=== PATIENT | female | born 1990 | race Asian ===

== ENCOUNTER → 2016-07-05 | Outpatient (CLI) | payer OTHER ==
[~2016-07-05] MED LIST: DOCU-94 PO; DOXY30TA; FIBER; MOML PO; PRENTAB26 PO; RANI150T3 PO
[2016-07-05 18:30] LABS: GTGD 50 Grams
[2016-07-07 14:17] LABS: AFP CONCENTRATION 30.5 NG/ML; AFP MULTIPLE OF MEDIAN 0.79; AFPTS GESTATIONAL AGE 16.3 WEEKS; AFPTS INSULIN DEP DIABETIC? NO; AFPTS MATERNAL WT 121 LBS; HISTORY OF NTD NO; REPEAT SAMPLE? NO
== END | disposition home or self-care (01) ==
LOC: C.LAB1850 15:45
PROVIDERS: ATTEND Obstetrics & Gynecology
DX: Z34.02 Encounter for supervision of normal first pregnancy, second trimester (principal)

== ENCOUNTER → 2016-07-15 | Outpatient (CLI) | payer OTHER | END | disposition home or self-care (01) | LOC: C.LAB 07:51 | PROVIDERS: ATTEND Obstetrics & Gynecology | DX: O28.9 Unspecified abnormal findings on antenatal screening of mother (principal); Z3A.00 Weeks of gestation of pregnancy not specified ==

== ENCOUNTER → 2016-09-27 | Outpatient (CLI) | payer OTHER ==
[2016-09-27 10:57] LABS: URINE APPEARANCE CLEAR (CLEAR); URINE BILIRUBIN NEG (NEG); URINE COLOR YELLOW; URINE NITRITE NEG (NEG); URINE PH 7.5 (4.5-7.5); URINE SPECIFIC GRAVITY 1.013 (1.000-1.030); UROBILINOGEN NEG (NEG)
[2016-09-27 11:01] LABS: MANUAL MICROSCOPIC REQUIRED? NO; REVIEW REQ? NO
[2016-09-27 11:54] LABS: HEMATOCRIT 33.6 % (37-47)
== END | disposition home or self-care (01) ==
LOC: C.LAB1850 10:06
PROVIDERS: ATTEND Obstetrics & Gynecology
DX: Z34.03 Encounter for supervision of normal first pregnancy, third trimester (principal)

== ENCOUNTER → 2016-11-22 | Outpatient (CLI) | payer OTHER | END | disposition home or self-care (01) | LOC: C.LABSPEC 10:03 | PROVIDERS: ATTEND Obstetrics & Gynecology | DX: Z34.03 Encounter for supervision of normal first pregnancy, third trimester (principal) ==

== ENCOUNTER 2016-12-19 04:33 | Inpatient (IN) | payer OTHER ==
[~2016-12-19] VITALS: Ht 152.4 cm; Wt 64.1 kg
[2016-12-19 05:22] VITALS: Ht 152.4 cm; Wt 64.1 kg
[2016-12-19] MEDS ORDERED: PRENTAB26 PO (05:25)
[2016-12-19] MEDS ORDERED: DOCU-94 PO (05:25)
[2016-12-19] MEDS ORDERED: MOML PO (05:26)
[2016-12-19] MEDS ORDERED: FIBER (05:26)
[2016-12-19] MEDS ORDERED: DOXY30TA (05:27)
[2016-12-19] MEDS ORDERED: RANI150T3 PO (05:27)
[2016-12-19] MEDS ORDERED: LACTATED RINGER'S 1000ML 1,000 ML IV PRN (08:14)
[2016-12-19 09:00] LABS: HEMATOCRIT 35.9 % (37-47); MEAN CELL VOLUME 85.5 fL (80-100); MEAN CORPUSCULAR HEMOGLOBIN 27.9 pg (25-34); MEAN CORPUSCULAR HGB CONC 32.6 g/dl (32-36); MEAN PLATELET VOLUME 11.4 fL (7.4-10.4); PLATELET COUNT 221 K/uL (130-400); WHITE BLOOD COUNT 13.87 K/uL (4.8-10.8)
[2016-12-19] MEDS ORDERED: EpHEDrine SULFATE INJ 50 MG/ML AMP ONE (11:29)
[2016-12-19] MEDS ORDERED: BUPIVACAINE 0.25% 30 ML VIAL ONE (11:29)
[2016-12-19] MEDS ORDERED: FENTANYL CITRATE INJ 50 MCG/1 ML 2 ML VIAL ONE (11:30)
[2016-12-19] MEDS ORDERED: FENTANYL 2MCG/ML ROPIV 1.25MG/ML 100ML BAG EPI ONE (11:30)
[2016-12-19] MEDS: LACTATED RINGER'S 1000ML 1,000 ML IV SCH ×3 (12:30→21:28)
[2016-12-19] MEDS ORDERED: NALOXONE HCL INJ 1 MG in SODIUM CHLORIDE 0.9% 1000ML 1,000 ML IV PRN (12:43)
[2016-12-19] MEDS ORDERED: LACTATED RINGER'S 1000ML 500 ML IV PRN ×2 (12:43→16:53)
[2016-12-19] MEDS ORDERED: DiphenhydrAMINE HCL 50 MG/ML VIAL IV PRN (12:45)
[2016-12-19] MEDS ORDERED: EpHEDrine SULFATE INJ 50 MG/ML AMP IV PRN (12:45)
[2016-12-19] MEDS ORDERED: NALOXONE HCL INJ 0.4 MG/1 ML VIAL/CARP IV PRN (12:45)
[2016-12-19] MEDS ORDERED: ONDANSETRON INJ 2 MG/ML 2 ML VIAL IV PRN (12:45)
[2016-12-19] MEDS ORDERED: NALBUPHINE HCL INJ 10 MG/ML AMP IV PRN (12:45)
[2016-12-19] MEDS ORDERED: OXYTOCIN 30 UNITS/500ML NSS IV PRN (17:00)
[2016-12-19] MEDS: FENTANYL 2MCG/ML ROPIV 1.25MG/ML 100ML BAG EPI PRN ×2 (19:12→22:49)
[2016-12-20] MEDS ORDERED: FENTANYL CITRATE INJ 50 MCG/1 ML 2 ML VIAL ONE (00:39)
[2016-12-20] MEDS ORDERED: LACTATED RINGER'S 1000ML 1,000 ML IV SCH (00:52)
[2016-12-20] MEDS ORDERED: HYDROCORTISONE ACETATE 25 MG SUPP PR PRN (01:00)
[2016-12-20] MEDS ORDERED: OXYCODONE/ACETAMINOPHEN 5-325 TAB PO PRN (01:00)
[2016-12-20] MEDS ORDERED: ACETAMINOPHEN 325 MG TAB PO PRN (01:00)
[2016-12-20] MEDS ORDERED: LANOLIN OINT EXT PRN ×2 (01:00)
[2016-12-20] MEDS ORDERED: BENZOCAINE 20% AER SPR 82.5 GM CAN EXT PRN (01:00)
[2016-12-20] MEDS ORDERED: OXYTOCIN 30 UNITS/500ML NSS IV PRN (01:00)
[2016-12-20] MEDS ORDERED: SUPERCREAM 0.870 % 15GM JAR EXT PRN (01:00)
[2016-12-20] MEDS ORDERED: DIPHTHERIA/TETANUS/PERTUSSIS 0.5 ML SYR/VIAL IM. ONE (01:00)
[2016-12-20] MEDS ORDERED: ONDANSETRON INJ 2 MG/ML 2 ML VIAL ONE (01:38)
--- NOTE | 2016-12-20 01:38 | DELIVERY SUMMARY ---
DATE OF OPERATION: 12/20/2016 PREOPERATIVE DIAGNOSES: 1. Mabry intrauterine at 40 and 2/7 weeks. 2. Onset of labor. 3. Group B streptococcus negative. POSTOPERATIVE DIAGNOSES: Same. PROCEDURE: Spontaneous vaginal delivery and repair of second degree laceration. SURGEON: Emilie Conrad MD STAFF AIR TACTICAL OFFICER: None. ESTIMATED BLOOD LOSS: 350 mL. COMPLICATIONS: None. DISPOSITION: Stable in labor and delivery. DESCRIPTION: Lissette is a 26-year-old G2, P0-0-1-0, who was admitted by my partner Dr. Goss and I assumed care of patient in the morning of 12/19/2016, at which point she was in early labor. She was managed throughout the day of 12/19/2016 with artificial rupture of membranes, augmentation with Pitocin and an epidural for pain management. She reached complete dilation just before midnight, was coached through pushing. After midnight, I was called for delivery as the head was . The patient pushed well and delivered the head of her infant in the occiput anterior position followed by both shoulders with no difficulty, and the remainder of the came easily out. There was noted to be meconium at the time of delivery. was placed on her abdomen. The cord was doubly clamped, cut by the father of the baby. Suction was provided by nursing and the rapidly began to move all 4 extremities and make respiratory efforts. The placenta delivered spontaneously after collection of cord blood for donation per patient's wishes, it was noted to be intact with a 3-vessel cord. There was a second degree perineal laceration which was repaired in the usual fashion using Vicryl suture. Due to patient's discomfort during repair, 50 mcg of fentanyl was administered IV to aid with pain management during repair with good result. The patient is currently in stable condition in the recovery room having tolerated delivery well. Her fundus is firm, lochia is minimal, and the infant is in good condition as well. I attest to the content of the Intraoperative Record and any orders documented therein. Any exception s are noted below.
[2016-12-20] MEDS ORDERED: ONDANSETRON INJ 2 MG/ML 2 ML VIAL IV PRN (01:45)
--- NOTE | 2016-12-20 02:14 | Anesthesia Procedure Note ---
Anesthesia Epidural Removal Nt Date & Time Dec 20, 2016 at 02:14 Vital Signs Pain Intensity: 0.0 Notes Mental Status: alert / awake / arousable, participated in evaluation Nausea / Vomiting: adequately controlled Pain: adequately controlled Airway Patency, RR, SpO2: stable & adequate BP & HR: stable & adequate Hydration State: stable & adequate Neuraxial Anesthesia: was administered Anesthetic Complications: no major complications apparent, pt satisfied with anesthetic care Epidural: removed without complications, with tip intact
[2016-12-20] MEDS: IBUPROFEN 600 MG TAB PO PRN ×2 (03:45→19:15)
[2016-12-20 04:00] VITALS: BP 96/61; PULSE 100; TEMP 36.8
[2016-12-20] MEDS: PRENATAL VITAMIN TAB PO SCH (08:00)
[2016-12-20] MEDS: DOCUSATE SODIUM 100 MG CAP PO SCH ×2 (08:00→19:16)
[2016-12-20 09:00] VITALS: BP 99/66; PULSE 85; TEMP 36.5
--- NOTE | 2016-12-20 10:18 | Medical Student: [facility] ---
Med Student History & Physical Date of Service Dec 20, 2016. Chief Complaint Labor Check History of Present Illness Source: patient Lissette is a 26 year old female who presents for a labor check. She was admitted to labor and delivery early this morning (12/19) at 40 weeks, 2 days gestation. Her ABBY was 12/18/2016 based on 1st trimester US and LMP. Her course was uncomplicated, and her Panorama and MSAFP tests were both WNL. Currently she is feeling contractions every 4 minutes and will have her membranes ruptures by Dr. Conrad this morning if they do not rupture spontaneously. She states that she feels movements and that her contractions are uncomfortable. She is requesting an epidural. There has been no fluid leakage or vaginal bleeding. Her blood type is A+, and she is rubella immune, GBS negative, VDRL/RPR nonreactive, and HIV counseling/testing negative. Her initial 1-hour glucose was high at 132 mg/dL, but her subsequent 2 -hr glucose test was within normal limits. At 32 weeks her Hb was 13.7 and her Hct was 39.5. Patient has mild ankle swelling but denies headache, dizziness, chest pain, and shortness of breath. OB History . Spontaneous in 2011. No further complications. 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 Past Medical History No pertinent medical or surgical history. Family History Type 2 diabetes mellitus Colon cancer Social History Smoking Status: Never Smoker Smokeless Tobacco Use: No Alcohol Use: none Drug Use: none Marital Status: Housing status: lives with significant other Occupational Status: employed Allergies Coded Allergies: No Known Allergies (Unverified , 12/19/16) Home Medications Docusate Sodium (Colace), 1 CAP PO BID Doxylamine-Pyridoxine (Diclegis) Fiber Laxative (Fiber Laxative) Magnesium Hydroxide (Milk Of Magnesia), 30 ML PO DAILY Multivit/Min/Iron/Fol Ac/Pren ( Vitamin), 1 TAB PO DAILY Ranitidine Hcl (Zantac), 150 MG PO DAILY Review of Systems Constitutional: No fever, No chills, No sweats, No weight loss, No weakness, No fatigue, No problem reported Eyes: No worsening of vision, No eye pain, No redness, No discharge, No diplopia, No problem reported ENT: No hearing loss, No unusual epistaxis, No nasal symptoms, No sore throat, No tinnitus, No dental problems, No trouble swallowing, No problem reported Respiratory: No cough, No sputum, No wheezing, No shortness of breath, No dyspnea on exertion, No dyspnea at rest, No hemoptysis, No problem reported Cardiovascular: No chest pain, No orthopnea, No PND, No edema, No claudication , No palpitations, No problem reported Abdomen: + pain (Contractions every 4 minutes) Musculoskeletal: No joint pain, No muscle pain, No swelling, No calf pain, No problem reported Genitourinary - Female: + Neurologic: No memory loss, No paralysis, No weakness, No numbness/tingling, No vertigo, No balance problems, No problem reported Psychiatric: No depression symptoms, No anhedonism, No anxiety, No insomnia, No substance abuse, No problem reported Endocrine: No fatigue, No excessive thirst, No excessive urination, No problem reported Hematologic / Lymphatic: No abnormal bleeding/bruising, No clotting problems, No swollen lymph nodes, No night sweats, No problem reported Integumentary: No rash, No itch, No new/changing skin lesions, No color change , No bleeding, No problem reported Physical Exam Vital Signs: Vital Signs Past 12 Hours Date Time Temp Pulse Resp B/P (MAP) Pulse Ox O2 Delivery O2 Flow Rate FiO2 12/19/16 0700 36.8C 88 18 119/72 General Appearance: WD/WN Head: normocephalic, atraumatic Eyes: normal inspection Respiratory/Chest: chest non-tender, lungs clear, normal breath sounds Cardiovascular: regular rate, rhythm, no murmur Abdomen / GI: non tender, soft, + pertinent finding (Gravid uterus) Genitourinary - Female: + pertinent finding (Dilation: 4 cm Effacement: 90% Station: -1 (examined by Dr. Goss)) Extremities: normal inspection, + swelling (Mild swelling in ankles bilaterally ) Monitoring External Monitor: Moderate variability; +accels: no decels; category 1 Baseline HR 130 Tocodynamometer: Ctx every 4 minutes Assessment and Plan Assessment: This is a 26-year-old female who presents today for a labor check at 40 weeks, two days gestation. There have been no complications. tracing is category 1. Plan: Admit to labor and delivery. Monitor mother and fetus with toco and EFM NPO except ice chips and water Expectant management for now. Will artificially rupture membranes and have epidural placed within the next two hours. Expect normal spontaneous vaginal delivery.
[2016-12-20 15:30] VITALS: BP 110/69; PULSE 103; TEMP 36.9
[2016-12-20 19:00] VITALS: BP 97/42; PULSE 92; TEMP 36.7
[2016-12-20 23:30] VITALS: BP 103/70; PULSE 79; TEMP 36.6
[2016-12-21] MEDS: IBUPROFEN 600 MG TAB PO PRN ×2 (01:52→22:48)
--- NOTE | 2016-12-21 06:25 | OB/GYN Progress Note ---
YARD ASSOCIATE Progress Note Date of Service Dec 21, 2016. Subjective conversation w/ patient, physical exam, chart review, lab review Ambulation: ambulating normally Voiding: no voiding problems Diet Tolerance: Regular Diet Lochia: Moderate Feeding Type: Breast Feeding Pain: 3-4/10 pain Review of Systems Constitutional: No fever Respiratory: No shortness of breath Cardiac: No chest pain Abdomen: No nausea, No vomiting Female : No dysuria Objective Vital Signs Date Time Temp Pulse Resp B/P (MAP) Pulse Ox O2 Delivery O2 Flow Rate FiO2 12/20/16 23:30 36.6 79 18 103/70 (81) Room Air 12/20/16 23:30 Room Air 12/20/16 19:00 36.7 92 20 97/42 (60) Room Air 12/20/16 15:30 Room Air 12/20/16 15:30 36.9 103 20 110/69 (83) Room Air 12/20/16 09:00 36.5 85 18 99/66 (77) Physical Exam General Appearance: WELL-APPEARING Respiratory/Chest: lungs clear, normal breath sounds, no respiratory distress Cardiovascular: regular rate, rhythm Abdomen: normal bowel sounds, non tender, soft Fundus: Firm, Relation to Umbilicus (3 FB below) Extremities: non-tender, no pedal edema Laboratory Results Last 24 Hours Test 12/21/16 04:44 Medications Current Inpatient Medications Medications (Trade) Dose Ordered Sig/Mil Route Start Time Stop Time Status Last Admin Dose Admin Lactated Ringer's 1,000 ml @ 125 mls/hr Q8H IV 12/20/16 00:52 01/19/17 00:51 Oxytocin (Pitocin IV) 30 units UD PRN IV 12/20/16 01:00 01/19/17 00:59 Benzocaine (Dermoplast Aero Spr) 1 appln PRN PRN EXT 12/20/16 01:00 01/19/17 00:59 12/20/16 03:45 1 APPLN Cocaine HCl (Supercream 0.870% Cr) BID PRN EXT 12/20/16 01:00 01/03/17 00:59 12/20/16 03:46 15 GM Hydrocortisone Acetate (Anusol Hc Supp) 25 mg BID PRN CA 12/20/16 01:00 01/19/17 00:59 Lanolin (Lanolin Oint) PRN PRN EXT 12/20/16 01:00 01/19/17 00:59 Prenat Multivit/ [place]/Iron/Folic Ac ( Vitamin Tab) 1 tab DAILY PO 12/20/16 08:00 01/19/17 07:59 Ibuprofen (Motrin Tab) 600 mg Q4H PRN PO 12/20/16 01:00 01/19/17 00:59 12/21/16 01:52 600 MG Acetaminophen (Tylenol Tab) 650 mg Q6H PRN PO 12/20/16 01:00 01/19/17 00:59 Oxycodone/ Acetaminophen (Percocet 5-325mg Tab) 1 tab Q4H PRN PO 12/20/16 01:00 01/03/17 00:59 Docusate Sodium (coLACE CAP) 100 mg BID PO 12/20/16 08:00 01/19/17 07:59 12/20/16 19:16 100 MG Ondansetron HCl (Zofran Inj) 4 mg Q6H PRN IV 12/20/16 01:45 01/19/17 01:44 Assessment and Plan Post- Day Number: 1 Continue Routine Care: A/P: This is a 26 y/o female, , s/p normal vaginal delivery. She is ambulating and clinically stable. Plan: - Vitals signs are reviewed and WNL (Tmax 36.9 ) - Last Hgb is 11.7 (12/19). This AM pending - Blood type A+, GBS neg, Rubella Immune - Routine care - Encourage ambulation, monitor and control pain with medication as needed, continue with regular diet as tolerated and monitor lochia - Stool softeners and sitz bath recommended - Encourage breast feeding and educate about breast feeding Resident Physician Supervision Note: I was present with Dr. Berry during the history and exam. I discussed the case with the resident and agree with the findings and plan as documented in the note. Any exceptions or clarifications are listed here: PPD#1 doing well. Continue routine care. Documented By: Bhavani Live Resident Involvement: Resident Care Provided Care Provided: OB Delivery
--- NOTE | 2016-12-21 06:44 | Medical Student: [facility] ---
Med Student INFORMATION OPERATOR Progress Nt Date of Service Dec 21, 2016. Subjective conversation w/ patient Ambulation: ambulating normally Voiding: no voiding problems Passing Gas: Yes Diet Tolerance: Regular Diet Lochia: Moderate Feeding Type: Breast Feeding Notes: Lissette is a 26-year-old, female who is post- day 2 following a normal spontaneous vaginal delivery. There were no complications during the labor process. Her blood type is A+, she is rubella immune, and GBS negative. She is ambulating well and has minimal pain with voiding. She states that she is passing gas but that she has not had a bowel movement within the last 24 hours. She has some moderate vaginal bleeding, and her pain today is 3-4/10. She is eating well with no nausea or vomiting and is breast-feeding with good latch. She denies headache, dizziness, shortness of breath, and chest pain. Review of Systems Constitutional: No fever, No chills, No sweats, No weight loss, No weakness, No fatigue, No problem reported Respiratory: No cough, No sputum, No wheezing, No shortness of breath, No dyspnea on exertion, No dyspnea at rest, No hemoptysis, No problem reported Cardiac: No chest pain, No orthopnea, No PND, No edema, No claudication, No palpitations, No problem reported Breast: No see HPI, No breast lump, No change in shape, No nipple discharge, No breast pain, No problem reported Abdomen: No pain, No nausea, No vomiting, No diarrhea, No constipation, No GI bleeding, No problem reported Female : + see HPI Objective Vital Signs Date Time Temp Pulse Resp B/P (MAP) Pulse Ox O2 Delivery O2 Flow Rate FiO2 12/20/16 23:30 36.6 79 18 103/70 (81) Room Air 12/20/16 23:30 Room Air 12/20/16 19:00 36.7 92 20 97/42 (60) Room Air 12/20/16 15:30 Room Air 12/20/16 15:30 36.9 103 20 110/69 (83) Room Air 12/20/16 09:00 36.5 85 18 99/66 (77) Physical Exam General Appearance: WELL-APPEARING, WD/WN, NO APPARENT DISTRESS Respiratory/Chest: chest non-tender, lungs clear, normal breath sounds Cardiovascular: regular rate, rhythm, no edema, no gallop, no murmur Abdomen: normal bowel sounds, non tender, soft Fundus: Firm, Relation to Umbilicus (3 cm) Extremities: normal range of motion, non-tender, normal inspection, no pedal edema Laboratory Results Last 24 Hours Test 12/21/16 04:44 Assessment and Plan Post- Day Number: 2 Continue Routine Care: Assessment: Lissette is a 26-year-old post- day 2 after a normal spontaneous vaginal delivery. Her vitals are reviewed and stable. Plan: Provide routine post-vaginal delivery care. Pre-delivery Hb of 11.7, post-delivery Hb pending. Continue to monitor for bleeding. Control pain with Motrin. Encourage ambulation and breast feeding.
--- NOTE | 2016-12-21 07:05 | Discharge Instructions ---
Discharge Instructions Date of Service Dec 21, 2016. Admission Reason for Admission: Labor Check Discharge Discharge Diagnosis / Problem: after delivery Discharge Goals Goal(s): Routine recovery after delivery Medications Continue Dispensed Medications: supercream, dermaplast, tucks, lansinoh Activity Recommendations Activity Limitations: per Instructions/Follow-up section . Instructions / Follow-Up Instructions / Follow-Up ACTIVITY RECOMMENDATIONS: * Gradual return to full activity over the next 2-3 weeks. * No lifting - nothing heavier than baby over the next 2-3 weeks. * Do not engage in vigorous exercise, sexual activity or sports until cleared by your physician. * Do not drive or operate any motorized equipment until cleared by your physician. * You may shower/bathe daily. MEDICATIONS: For discomfort or pain, you may use Acetaminophen (Tylenol), Ibuprofen (Advil), or Naproxen (Aleve) following the package directions. For constipation you may use Colace following the package directions. BREAST CARE: If you are not breast feeding: * Wear a supportive bra 24 hours a day for one to two weeks. * Avoid stimulating your breasts and nipples as much as possible during the first few weeks after delivery. * When taking a shower, have the warm water hit your back, not breasts. * When your breasts feel full, apply ice packs. Usually three to four times a day helps ease the discomfort. * Take a mild pain medication (Tylenol / Motrin) when you are uncomfortable. If breast feeding: * Use breast milk to lubricate nipples. Lansinoh cream may be used for sore nipples. You do not need to remove cream prior to breast feeding. If using a different brand of cream, check the label for directions regarding removal of cream prior to nursing. * Wear a supportive bra. * If having problems with breasts or breast feeding, call a independent marketing consultant or your health care provider. EPISIOTOMY CARE: After delivery, if you have an episiotomy (stitches), the following steps will ease discomfort and aid healing. * For the first 24 hours after delivery, place ice packs next to your episiotomy to help reduce swelling. * After the first 24 hour-period, sitz baths, either portable or in the tub, are suggested. A shower with a shower arm sprayed over the episiotomy may be comforting. * Thuy care should be done after each voiding and bowel movement. Squirt warm water from a plastic bottle over the perineum (region of the body between the anus and urinary opening) and pat dry. * Use Dermoplast to ease discomfort. Shake container. [place] directly over the episiotomy. Place a Tucks on a clean sanitary pad next to your episiotomy. SPECIAL CARE INSTRUCTIONS: When you are discharged from the hospital, it is important for you to follow the instructions listed below: * During the first week at home, you should be able to care for yourself and your baby. In addition, the usual light household activities are encouraged. * Limit your activities to the way you feel. Do not try to clean the house or move furniture. Be sensible. * If you actively engage in sports and have done so up until the time of your delivery, you may resume these activities as soon as you feel able. This may take up to one month or even longer. Use good judgment. * Continue to take your vitamins for at least six weeks after the of your baby. * Your diet need not be limited unless you were on a special diet before your delivery. Breast-feeding mothers need around 2500 calories per day and at least 64-80 ounces of fluid per day (8 to 10 glasses). * You should eat foods from the four major food groups. Crash diets or fad diets are to be avoided. Eating lean meats, fresh fruits and vegetables, low-fat dairy products, high fiber foods and a regular exercise program, will help you get back to your pre- weight without putting your health at risk. * Constipation is sometimes a problem after delivery. Take a mild laxative as needed. If breast feeding, Milk of Magnesia is acceptable to use. You may use a suppository or Fleets enema if no episiotomy. * A daily shower or tub bath is suggested. Be sure to thoroughly and gently dry the perineum. * A bloody vaginal discharge will usually continue until around four weeks post . A small amount of bleeding may continue for as long as six weeks. Vaginal discharge changes from the bright red bleeding after delivery to pink then brownish and finally yellowish-pink before becoming white and disappearing. * Bleeding may increase with activity. Your first period may come in 4-8 weeks. If you are breast feeding, your period may be delayed even longer. * Prien (sex) can begin whenever both you and your partner feel comfortable and do not have any form of genital infection. It is recommended that you wait at least six weeks for internal and external healing to occur. If you have questions, please talk to your health care practitioner. A condom should be used to prevent infection and . * Foreplay, gentle intercourse and lubrication is very important the first several times to prevent pain. A water-based lubricant such as K-Y jelly or Astroglide may be used. * If you have RH negative blood and your baby is RH positive, you will receive RHOGAM by injection prior to discharge. The nurse will give you a card to keep with you that has the date and place that you received RHOGAM after delivery. * During your care, you had a Rubella screen done to check for the presence of rubella antibodies in your blood. If your test was negative, you will receive a Rubella vaccine prior to discharge. This vaccine may cause a fever, soreness at the injection site and flu-like symptoms. If these symptoms persist, notify your health care practitioner. is not advised for one month after a Rubella vaccine. * Verbalizes understanding of car seat law as reviewed with patient nursing. * Car Seat hand-out given and reviewed with patient by nursing. * Shaken baby information reviewed with patient by nursing. Call you doctor if: * Heavy bleeding (saturating several pads an hour) or passing clots the size of your fist. * A fever >101 degrees F (38.3 degrees C) on two occasions four hours apart and /or chills. * Unusual pain in the pelvic or vaginal areas. * "Baby Blues" lasting longer than two weeks. If you have any questions or concerns, call your health care practitioner at . FOLLOW UP VISIT: * Please call the office at to schedule a 6 week examination. It is important you keep this appointment. It is important for you to make arrangements for either yearly or twice yearly check-ups thereafter. Current Hospital Diet Patient's current hospital diet: Regular OB Diet, Vegetarian Diet Discharge Diet Recommended Diet: Regular Diet Pending Studies Studies pending at discharge: no Medical Emergencies . Who to Call and When: Medical Emergencies: If at any time you feel your situation is an emergency, please call 911 immediately. . Non-Emergent Contact Non-Emergency issues call your: Hand Clipper . . "Provider Documentation" section prepared by Juan Berry. . VTE Core Measure Inpt VTE Proph given/why not?: Treatment not indicated
[2016-12-21 07:27] LABS: HEMATOCRIT 27.7 % (37-47)
[2016-12-21 08:06] VITALS: BP 107/74; PULSE 76; TEMP 36.5; O2SAT 100
[2016-12-21] MEDS: DOCUSATE SODIUM 100 MG CAP PO SCH ×2 (08:54→19:59)
[2016-12-21] MEDS: PRENATAL VITAMIN TAB PO SCH (08:54)
[2016-12-21 16:15] VITALS: BP 103/69; PULSE 85; TEMP 37
[2016-12-21] MEDS ORDERED: MAGNESIUM HYDROXIDE SUSP 30 ML UDC PO PRN (16:45)
[2016-12-21 22:55] VITALS: BP 109/74; PULSE 80; TEMP 36.6
--- NOTE | 2016-12-22 06:12 | OB/GYN Progress Note ---
[facility] Progress Note Date of Service Dec 22, 2016. Subjective conversation w/ patient, physical exam, chart review, lab review Ambulation: ambulating normally Voiding: no voiding problems Diet Tolerance: Regular Diet Lochia: Small Feeding Type: Breast Feeding Pain: 3-4/10 Review of Systems Constitutional: No fever Respiratory: No shortness of breath Cardiac: No chest pain Abdomen: No nausea, No vomiting Female : No dysuria Objective Vital Signs Date Time Temp Pulse Resp B/P (MAP) Pulse Ox O2 Delivery O2 Flow Rate FiO2 12/21/16 22:55 Room Air 12/21/16 22:55 36.6 80 16 109/74 (86) Room Air 12/21/16 16:15 37.0 85 16 103/69 (80) Room Air 12/21/16 16:15 Room Air 12/21/16 08:30 Room Air 12/21/16 08:06 36.5 76 16 107/74 (85) 100 Room Air Physical Exam General Appearance: WELL-APPEARING Respiratory/Chest: lungs clear, normal breath sounds, no respiratory distress Cardiovascular: regular rate, rhythm Abdomen: normal bowel sounds, non tender, soft Fundus: Firm, Relation to Umbilicus (4 FB below) Extremities: non-tender, no pedal edema Laboratory Results Last 24 Hours Test 12/21/16 06:52 Hemoglobin 9.1 g/dL Hematocrit 27.7 % Medications Current Inpatient Medications Medications (Trade) Dose Ordered Sig/Mil Route Start Time Stop Time Status Last Admin Dose Admin Lactated Ringer's 1,000 ml @ 125 mls/hr Q8H IV 12/20/16 00:52 01/19/17 00:51 Oxytocin (Pitocin IV) 30 units UD PRN IV 12/20/16 01:00 01/19/17 00:59 Benzocaine (Dermoplast Aero Spr) 1 appln PRN PRN EXT 12/20/16 01:00 01/19/17 00:59 12/20/16 03:45 1 APPLN Cocaine HCl (Supercream 0.870% Cr) BID PRN EXT 12/20/16 01:00 01/03/17 00:59 12/20/16 03:46 15 GM Hydrocortisone Acetate (Anusol Hc Supp) 25 mg BID PRN SD 12/20/16 01:00 01/19/17 00:59 Lanolin (Lanolin Oint) PRN PRN EXT 12/20/16 01:00 01/19/17 00:59 Prenat Multivit/ Field Captain/Iron/Folic Ac ( Vitamin Tab) 1 tab DAILY PO 12/20/16 08:00 01/19/17 07:59 12/21/16 08:54 1 TAB Ibuprofen (Motrin Tab) 600 mg Q4H PRN PO 12/20/16 01:00 01/19/17 00:59 12/21/16 22:48 600 MG Acetaminophen (Tylenol Tab) 650 mg Q6H PRN PO 12/20/16 01:00 01/19/17 00:59 Oxycodone/ Acetaminophen (Percocet 5-325mg Tab) 1 tab Q4H PRN PO 12/20/16 01:00 01/03/17 00:59 Docusate Sodium (coLACE CAP) 100 mg BID PO 12/20/16 08:00 01/19/17 07:59 12/21/16 19:59 100 MG Ondansetron HCl (Zofran Inj) 4 mg Q6H PRN IV 12/20/16 01:45 01/19/17 01:44 Magnesium Hydroxide (Milk Of Magnesia Susp) 30 ml Q6H PRN PO 12/21/16 16:45 01/20/17 16:44 12/21/16 17:20 30 ML Assessment and Plan Post- Day Number: 2 Continue Routine Care: A/P: This is a 26 y/o female, , PPD#2 s/p normal vaginal delivery. She is ambulating and clinically stable. Plan: - Vitals signs are reviewed and WNL (Tmax 36.9 ) - Last Hgb is 11.7 (12/19). This AM pending - Blood type A+, GBS neg, Rubella Immune - No signs of depression. - Routine care - Discussed resting, feeding, pain control, mastitis, control, follow up in 6 weeks and reasons to call sooner, if necessary. - Continue with pain medication as needed, and continue vitamins. - Encourage breast feeding and educate about breast feeding - Patient understands and keen for home. - Plan to discharge home Resident Physician Supervision Note: I interviewed and examined the patient. Discussed with Dr. Berry and agree with findings and plan as documented in the note. Any exceptions or clarifications are listed here: [None] Documented By: Param Rice Resident Involvement: Resident Care Provided Care Provided: OB Delivery
[2016-12-22 08:20] VITALS: BP 116/82; PULSE 96; TEMP 36.8; O2SAT 98
[2016-12-22] MEDS: DOCUSATE SODIUM 100 MG CAP PO SCH (09:36)
[2016-12-22] MEDS: PRENATAL VITAMIN TAB PO SCH (09:36)
[2016-12-22] MEDS: IBUPROFEN 600 MG TAB PO PRN ×2 (11:55→20:11)
[2016-12-22 16:40] VITALS: BP 124/84; PULSE 83; TEMP 36.7; O2SAT 98
[2016-12-22 20:15] VITALS: BP_DIAS 84; PULSE 83; TEMP 36.7
== END 2016-12-22 21:00 | disposition home or self-care (01) | DRG 775 ==
LOC: C.OPB 04:33 → C.LD 04:33 → C.OPB 08:16 → C.OBG 12-20 04:00
PROVIDERS: ADMIT Obstetrics & Gynecology; ATTEND Obstetrics & Gynecology
PROC: 0WQNXZZ Repair Female Perineum, External Approach (ICD-10-PCS; principal; 2016-12-20)
PROC: 10E0XZZ Delivery of Products of Conception, External Approach (ICD-10-PCS; principal; 2016-12-20)
DX: O70.1 Second degree perineal laceration during delivery (principal); Z3A.40 40 weeks gestation of pregnancy; Z37.0 Single live birth

== ENCOUNTER → 2017-03-28 | Outpatient (CLI) | payer OTHER ==
[2017-03-28 14:32] LABS: PREG INTERNAL NEGATIVE QC NEG CLEAR BACKGROUND; PREG INTERNAL POSITIVE QC POS CONTROL LINE
== END | disposition home or self-care (01) ==
LOC: C.LAB 14:06
PROVIDERS: ATTEND Physician Assistant
DX: Z30.9 Encounter for contraceptive management, unspecified (principal)

== ENCOUNTER 2019-09-15 21:56 | Inpatient (IN) ==
[2019-09-15] MEDS ORDERED: OXYTOCIN 30 UNITS/500 ML BAG IV PRN (22:38)
[2019-09-15] MEDS ORDERED: METHYLERGONOVINE MALEATE 0.2 MG/ML AMP IM PRN (22:38)
--- NOTE | 2019-09-15 22:44 | History & Physical Report ---
Date of Service September 15, 2019 Assessment & Plan (1) Supervision of normal intrauterine in multigravida: discussed with patient early labor. offered admission with understanding may need pitocin/arom to advance labor pattern. she prefers this and prefers epidural for pain mgmt. will admit, iv, labs. allow to ambulate with recheck by 2hr, can have epidural when desires and plan arom. fhts categ 1. History of Present Illness Chief Complaint: regular ctx Primary Care Provider: Manuel Sweeney MD 28yo at 40 0/7 wks ega with edc 09/15/19 presents to L&D with above cc. Patient denies rom or vb. +FM. She notes ctx increased in intensity and frequency and wanted to come for labor check. PNC uncomplicated PNL rh pos, ri, gbs neg OBH: x 1 GYNH: nl paps, neg with neg hpv 2018, no stds. Allergies Allergy/AdvReac Type Severity Reaction Status Date / Time No Known Drug Allergies Allergy Unknown Verified 09/15/19 22:06 Home Medications Home Medications Medication Instructions Recorded Confirmed Type prenat.vits,rob,tbj-[id number] 1 tab PO DAILY 01/18/19 09/15/19 History doxylamine 10 mg-pyridoxine (vit 1 tab PO BID PRN #60 tab 06/24/19 09/15/19 Rx B6) 10 mg tablet,delayed release cholecalciferol (vitamin D3) 10 mcg PO DAILY 09/15/19 09/15/19 History [Vitamin D3] docusate sodium [Colace] 100 mg PO DAILY 09/15/19 09/15/19 History famotidine 10 mg PO DAILY 09/15/19 09/15/19 History magnesium 30 mg PO DAILY 09/15/19 09/15/19 History omega 1-bef-pve-fish oil [[place]-3] 1 cap PO DAILY 09/15/19 09/15/19 History Patient History Medical History (Updated 09/15/19 @ 22:06 by Maureen Ward RN) [place]ont[place] [facility] [place] Surgical History S/P LASIK surgery S/P wisdom tooth extraction Social History (Updated 01/28/19 @ 10:20 by Sariah Elmore) Preferred Language: Armenian Communication Ability: Effective 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: No Beliefs That Will Affect Care: None marital status: marital status details: Claudy Melchor (32) [phone] Current Living Situation: Spouse Current Living Situation Comment: 2 cats- pt not changing cat litter current occupational status: employed current occupation: [employer] @ [employer] Other Information That Helps Us Care for You: No Feels Safe at Home: Yes Safety Concerns: Feels Safe At This Time Smoking Status: Never smoker Hx Alcohol Use: No Hx Substance Use: No Review of Systems as per Subjective / HPI; no fever no change in stools no dysuria and no abnormal vaginal bleeding Physical Exam Constitutional: WD/WN, vitals as above Respiratory: normal respiratory effort, lungs clear to auscultation Cardiovascular: Rate/Rhythm: regular rate and regular rhythm Gastrointestinal (Abdomen): Percussion/Palpation: abdomen soft (gravid); abdomen nontender Musculoskeletal: no edema Neurologic: grossly normal Psychiatric: A+Ox3, euthymic affect Genitourinary: OB Exam Abdomen: + estimated weight (7-8#) Manual OB Exam: + cervical dilation (4), + cervical effacement (75%) and + station -2 OB Exam Monitor Tracing: + external FHT monitor used (140 mod variability), + external uterine monitor used (q5), + category I and + normal FHT variability Results & Data Vital Signs (Past 12 Hours) Vital Signs Temp Pulse Resp BP 09/15/19 22:08 98.6 F 18 09/15/19 22:03 98.6 F 110 H 18 114/75 Coding Level of Care Code None Diagnoses Supervision of normal intrauterine in multigravida Z34.80
[2019-09-15] MEDS: LACTATED RINGER'S 1,000 ML IV PRN (22:50)
[2019-09-15 22:58] LABS: Hematocrit (blood only) 34.8 % (37-47); Hemoglobin 11.4 g/dL (12.0-16.0); Mean Corpuscular Hemoglobin 28.5 pg (25-34); Mean Platelet Volume 11.3 fL (7.4-10.4); Platelet Count 228 K/uL (130-400); RDW Coefficient of Variation 14.2 % (11.5-14.5); RDW Standard Deviation 44.6 fL (36.4-46.3); White Blood Count 8.13 K/uL (4.8-10.8)
[2019-09-15 23:05] LABS: Mean Corpuscular Hgb Conc 32.8 g/dL (32-36)
[2019-09-16] MEDS ORDERED: fentaNYL citrate 100 MCG/2 ML VIAL ONE ×2 (00:59→01:05)
[2019-09-16] MEDS ORDERED: ePHEDrine sulfate 50 MG/ML AMP ONE (00:59)
[2019-09-16] MEDS ORDERED: fentaNYL 2MCG/ML ROPIV 1.25MG/ML 100 ML BAG EPI ONE (00:59)
[2019-09-16] MEDS ORDERED: BUPIVACAINE 0.25% 30 ML VIAL ONE (00:59)
[2019-09-16] MEDS ORDERED: ePHEDrine sulfate 50 MG/ML AMP IV PRN (01:58)
[2019-09-16] MEDS ORDERED: ONDANSETRON INJ 2 MG/ML 2 ML VIAL IV PRN (01:58)
[2019-09-16] MEDS ORDERED: NALOXONE HCL 0.4 MG/1 ML VIAL/CARP IV PRN (01:58)
[2019-09-16] MEDS ORDERED: NALOXONE HCL 1 MG in SODIUM CHLORIDE 0.9% 1000ML 1,000 ML IV PRN (01:58)
[2019-09-16] MEDS ORDERED: fentaNYL 2MCG/ML ROPIV 1.25MG/ML 100 ML BAG EPI PRN (01:58)
[2019-09-16] MEDS ORDERED: PROMETHAZINE HCL 6.25 MG in SODIUM CHLORIDE 0.9% 50 ML IV PRN (01:58)
[2019-09-16] MEDS ORDERED: NALBUPHINE HCL INJ 10 MG/ML AMP IV PRN (01:58)
[2019-09-16] MEDS ORDERED: DiphenhydrAMINE HCL 50 MG/ML VIAL IV PRN (01:58)
--- NOTE | 2019-09-16 01:59 | Anesthesiology Consultation ---
Date of Service September 16, 2019 Assessment & Plan (1) Encounter for pre-operative examination: Chart Review Chart Review: Patient NOT seen in Pre Admission Testing and Acceptable Risk for Labor Epidural Consults Requested none ASA ASA2 Proposed Anesthesia Anesthesia Type: Labor Epidural Risk / Benefits Reviewed With: PT / POA / Parent / Guardian, Accepts Plan and Informed Consent Obtained History Height/Weight Height: 5 ft Weight: 68.039 kg Allergies Allergy/AdvReac Type Severity Reaction Status Date / Time No Known Drug Allergies Allergy Unknown Verified 09/15/19 22:06 Medications Home Medications Medication Instructions Recorded Confirmed Last Taken prenat.vits,rob,fvi-sphr-liikh 1 tab PO DAILY 01/18/19 09/15/19 09/15/19 12:00 doxylamine 10 mg-pyridoxine (vit 1 tab PO BID PRN #60 tab 06/24/19 09/15/19 09/15/19 12:00 B6) 10 mg tablet,delayed release cholecalciferol (vitamin D3) 10 mcg PO DAILY 09/15/19 09/15/19 09/15/19 12:00 [Vitamin D3] docusate sodium [Colace] 100 mg PO DAILY 09/15/19 09/15/19 09/15/19 12:00 famotidine 10 mg PO DAILY 09/15/19 09/15/19 09/15/19 12:00 magnesium 30 mg PO DAILY 09/15/19 09/15/19 09/15/19 12:00 omega 8-nak-ojq-fish oil [[place]-3] 1 cap PO DAILY 09/15/19 09/15/19 09/15/19 12:00 Active Medications Generic Name Dose Route Start Last Admin Trade Name Freq PRN Reason Stop Dose Admin Lactated Ringer's 1,000 mls @ 125 mls/hr 09/15/19 22:38 09/16/19 01:53 Lr IV 09/17/19 22:37 999 mls/hr .Q8H PRN Infusion L&D Protocol Protocol NPO Date Last Intake of Fluids: 09/16/19 Time Last Intake of Fluids: 01:00 Date Last Intake of Solids: 09/15/19 Time Last Intake of Solids: 18:00 Past Medical History Medical History Spontaneous vaginal delivery 12/2016 [facility] Varicella Exercise / Class Metabolic Activity II 4-5 Yardwork/Stairs/Walk up hill Past Family History Family History Mother Diabetes Hypertension Hypercholesteremia Sister PCOS (polycystic ovarian syndrome) Past Surgical History Surgical History S/P LASIK surgery S/P wisdom tooth extraction Past Anesthesia History No Hx of Anesthesia Complications and No Family Hx of Anesthesia Complications History of PONV No Hx of PONV and No Hx of Motion Sickness Social History Smoking Status: Never smoker Hx Alcohol Use: No Hx Substance Use: No Physical Exam Vital Signs Last Vital Signs Temp 36.9 C 09/16/19 00:41 Pulse 100 H 09/16/19 01:56 Resp 18 09/16/19 00:41 BP 95/54 L 09/16/19 01:56 Pulse Ox 100 09/16/19 01:53 ENMT Mouth: no dentition abnormality Thyromental Distance: > or= 3.5 Finger Breadths Mallampati Class: II Neck normal visual inspection Respiratory normal respiratory effort Auscultation: lungs clear to auscultation bilaterally Cardiovascular Rate/Rhythm: regular rate and regular rhythm Psychiatric Orientation: alert Testing Laboratory Results 09/15/19 22:49
[2019-09-16] MEDS: LACTATED RINGER'S 1,000 ML IV PRN (02:00)
--- NOTE | 2019-09-16 02:45 | Labor Progress Brief Note ---
Date of Service September 16, 2019 Subjective Reason For Note: Routine Evaluation comfortable now with epidural Assessment & Plan (1) Supervision of normal intrauterine in multigravida: (2) Active labor at term: progressing well in labor. arom done. fhts categ 1. Physical Exam Constitutional: WD/WN, vitals as above Psychiatric: A+Ox3, euthymic affect Genitourinary: Manual OB Exam: + cervical dilation 7 cm, + cervical effacement 100%, + station 0 and + amniotic fluid (AROM) clear OB Exam Monitor Tracing: + external FHT monitor used (120 mod variability), + external uterine monitor used (q3), + category I and + normal FHT variability Results & Data Vital Signs (Past 12 Hours) Vital Signs Temp Pulse Resp BP Pulse Ox 09/16/19 02:38 73 100 09/16/19 02:35 98.4 F 18 09/16/19 02:33 83 100 09/16/19 02:32 103 H 95/54 L 09/16/19 02:29 90 97/53 L 09/16/19 02:28 83 100 09/16/19 02:27 81 94/51 L 09/16/19 02:25 93 H 91/52 L 09/16/19 02:23 80 97/51 L 100 09/16/19 02:21 83 99/55 L 09/16/19 02:19 77 97/53 L 09/16/19 02:18 89 100 09/16/19 02:17 81 95/55 L 09/16/19 02:15 94 H 98/53 L 09/16/19 02:13 80 97/52 L 100 09/16/19 02:11 105 H 91/50 L 09/16/19 02:09 81 98/50 L 09/16/19 02:08 82 100 09/16/19 02:07 86 96/52 L 09/16/19 02:06 103 H 92/48 L 09/16/19 02:03 89 100/55 L 100 09/16/19 02:01 89 93/52 L 09/16/19 02:00 18 09/16/19 01:59 86 91/54 L 09/16/19 01:58 88 100 09/16/19 01:57 91 H 95/53 L 09/16/19 01:56 100 H 95/54 L 09/16/19 01:53 86 102/58 L 100 09/16/19 01:51 91 H 112/65 09/16/19 01:50 93 H 101/57 L 09/16/19 01:48 82 139/63 100 09/16/19 01:45 82 127/81 09/16/19 01:43 81 100 09/16/19 01:38 93 H 100 09/16/19 01:35 92 H 93 09/16/19 01:33 90 100 09/16/19 01:28 89 100 09/16/19 01:23 81 100 09/16/19 01:18 78 100 09/16/19 01:13 80 100 09/16/19 01:08 82 100 09/16/19 00:41 98.4 F 68 18 111/73 09/15/19 22:08 98.6 F 18 09/15/19 22:03 98.6 F 110 H 18 114/75 Coding Level of Care Code None Diagnoses Supervision of normal intrauterine in multigravida Z34.80 Active labor at term
[2019-09-16] MEDS ORDERED: BENZOCAINE 20% AER SPR 82.5 GM CAN EXT PRN (05:11)
[2019-09-16] MEDS ORDERED: SUPERCREAM 0.870% 15 GM JAR EXT PRN (05:11)
[2019-09-16] MEDS ORDERED: HYDROCORTISONE ACETATE 25 MG SUPP PR PRN (05:11)
[2019-09-16] MEDS ORDERED: OXYTOCIN 30 UNITS/500 ML BAG IV PRN (05:11)
[2019-09-16] MEDS ORDERED: OXYCODONE/ACETAMINOPHEN 5mg/325mg TAB PO PRN (05:11)
[2019-09-16] MEDS ORDERED: ACETAMINOPHEN 325 MG TAB PO PRN (05:11)
--- NOTE | 2019-09-16 05:13 | Delivery Summary ---
Vaginal Delivery Summary Date of Service September 16, 2019 The patient dilated to complete and pushed to deliver a viable female infant Apgars 9 and 10 via over 2nd degree perineal laceration. Mouth and nose bulb suctioned at perineum. Shoulders and body delivered with ease. Infant was vigorous and crying at . Cord clamped at 30 seconds of life and infant to maternal abdomen where the cord was then doubly clamped and cut. Placenta delivered spontaneously and intact, three-vessel cord. Hemostasis achieved with dilute pitocin and uterine massage. Laceration repaired in usual fashion with 3- 0 vicryl. Cervix and sulci intact. EBL 300 cc. Mother and baby stable recovery. [facility] [place] Charge Vaginal Delivery Codes: 25582 global code for the antepartum, delivery, and post-
[2019-09-16] MEDS ORDERED: OXYTOCIN 20 UNITS in LACTATED RINGER'S 1,000 ML IV SCH (05:15)
[2019-09-16] MEDS ORDERED: DIPHTHERIA/TETANUS/PERTUSSIS 0.5 ML SYR/VIAL IM ONE (05:36)
--- NOTE | 2019-09-16 07:00 | Anesthesia Procedure Note ---
Date of Service September 16, 2019 Anesthesia Post Epidural Note Vital Signs Vital Signs: Temp Pulse Resp BP Pulse Ox 36.9 C 94 H 18 100/62 100 09/16/19 06:35 09/16/19 06:36 09/16/19 06:35 09/16/19 06:36 09/16/19 05:03 Notes Mental Status: alert / awake / arousable Patient Amnestic to Procedure: Yes Nausea / Vomiting: adequately controlled Pain: adequately controlled Airway Patency, RR, SpO2: stable & adequate BP & HR: stable & adequate Hydration State: stable & adequate Neuraxial Anesthesia: was administered and sensory block is resolving Anesthetic Complications: no major complications apparent and Pt Satisfied with anesthetic care
--- NOTE | 2019-09-16 07:00 | Anesthesia Procedure Note ---
Date of Service September 16, 2019 Anesthesia Post Epidural Note Vital Signs Vital Signs: Temp Pulse Resp BP Pulse Ox 36.9 C 94 H 18 100/62 100 09/16/19 06:35 09/16/19 06:36 09/16/19 06:35 09/16/19 06:36 09/16/19 05:03 Notes Anesthetic Complications: no major complications apparent and Pt Satisfied with anesthetic care Epidural: Removed without complications and With tip intact
[2019-09-16] MEDS: IBUPROFEN 600 MG TAB PO PRN ×4 (08:13→21:45)
[2019-09-16] MEDS: DOCUSATE SODIUM 100 MG CAP PO SCH ×2 (08:14→21:44)
[2019-09-16] MEDS: PRENATAL VITAMIN 1 TAB PO SCH (08:14)
[2019-09-16] MEDS: FAMOTIDINE 10 MG TABLET PO SCH (08:17)
[2019-09-16] MEDS ORDERED: MAGNESIUM HYDROXIDE SUSP 30 ML UDC PO PRN (17:29)
[2019-09-17 06:59] LABS: Hematocrit (blood only) 31.2 % (37-47); Hemoglobin 10.2 g/dL (12.0-16.0)
--- NOTE | 2019-09-17 07:07 | Obstetrical Progress Note ---
Date of Service September 17, 2019 doing well, min issues Assessment & Plan (1) : home Subjective Ambulation: ambulating normally Voiding: no voiding problems Passing Gas:: Yes Diet Tolerance:: regular diet Lochia:: Small Feeding Type:: breast feeding Current Pain Level(1-10): 0 Physical Exam Constitutional WD/WN, vitals as above (Min bleeding no ext tenderness) Results & Data Vital Signs (Past 12 Hours) Vital Signs Temp Pulse Resp BP Pulse Ox 09/17/19 03:45 97.7 F 75 16 118/79 09/16/19 23:45 97.9 F 61 16 114/57 L 09/16/19 19:42 98.1 F 88 18 108/70 98
[2019-09-17] MEDS: PRENATAL VITAMIN 1 TAB PO SCH (08:29)
[2019-09-17] MEDS: DOCUSATE SODIUM 100 MG CAP PO SCH (08:29)
[2019-09-17] MEDS: IBUPROFEN 600 MG TAB PO PRN (08:29)
[2019-09-17] MEDS: FAMOTIDINE 10 MG TABLET PO SCH (08:31)
== END 2019-09-17 13:00 | disposition home or self-care (01) | DRG 807 ==
LOC: 4S1 21:56 → OPB 21:56 → 4S1 22:38 → 4S2 09-16 07:55

== ENCOUNTER 2022-11-26 16:02 | Inpatient (IN) ==
[2022-11-26] MEDS ORDERED: LACTATED RINGER'S 1,000 ML IV PRN (17:36)
[2022-11-26] MEDS ORDERED: LIDOCAINE 1% LOCAL 20 ML VIAL INFIL PRN (17:36)
[2022-11-26] MEDS ORDERED: OXYTOCIN 30 UNITS/500 ML BAG IV PRN (17:36)
--- NOTE | 2022-11-26 17:41 | Labor Progress Brief Note ---
Date of Service November 26, 2022 Subjective 31yo @ 39w2d with onset of painful regular ctx, no LOF, no VB, good FM. Assessment & Plan (1) Normal labor: Plan: Admit, exp mgmt for now, epidural on request Physical Exam Genitourinary: /0 [place] Q5 FHT Cat 1 Results & Data Vital Signs (Past 12 Hours) Vital Signs Temp Pulse Resp BP 11/26/22 16:13 98.2 F 20 11/26/22 16:12 93 H 116/66 Coding Level of Care Code None Diagnoses Normal labor O80; Z37.9
[2022-11-26 18:30] LABS: Hematocrit (blood only) 34.7 % (37.0-47.0); Hemoglobin 11.6 g/dl (12.0-16.0); Mean Corpuscular Hemoglobin 29.7 pg (25.0-34.0); Mean Corpuscular Hgb Conc 33.4 g/dL (32.0-36.0); Mean Platelet Volume 11.8 fL (9.4-12.4); Platelet Count 214 K/uL (130-400); RDW Coefficient of Variation 13.8 % (11.5-14.5); RDW Standard Deviation 44.1 fL (36.4-46.3); White Blood Count 9.39 K/ul (4.8-10.8)
[2022-11-26] MEDS ORDERED: fentaNYL citrate PF 100 MCG/2 ML VIAL ONE (19:01)
[2022-11-26] MEDS ORDERED: BUPIVACAINE 0.25% PF 30 ML VIAL ONE (19:02)
[2022-11-26] MEDS ORDERED: LIDOCAINE 2%/EPINEPHRINE 1:200,000 20 ML PF ONE (19:02)
[2022-11-26] MEDS ORDERED: ePHEDrine sulfate 50 MG/ML AMP ONE (19:02)
[2022-11-26] MEDS ORDERED: fentaNYL 2MCG/ML ROPIVACAINE 1.25MG/ML 100 ML BAG EPI ONE (19:02)
[2022-11-26] MEDS ORDERED: SODIUM CHLORIDE 0.9% PF INJ 10 ML VIAL ONE (19:02)
[2022-11-26] MEDS ORDERED: SODIUM CHLORIDE 0.9% PF INJ 10 ML VIAL EPI PRN (19:39)
[2022-11-26] MEDS ORDERED: LIDOCAINE 2% MPF LOCAL 5 ML VIAL EPI PRN (19:39)
[2022-11-26] MEDS ORDERED: ROPIVACAINE 0.5% PF 5 MG/ML 20 ML VIAL EPI PRN (19:39)
[2022-11-26] MEDS ORDERED: diphenhydrAMINE 50 MG/ML VIAL IV PRN (19:39)
[2022-11-26] MEDS ORDERED: NALBUPHINE HCL INJ 10 MG/ML AMP IV PRN (19:39)
[2022-11-26] MEDS ORDERED: LIDOCAINE 2%/EPINEPHRINE 1:200,000 20 ML PF EPI STA (19:39)
[2022-11-26] MEDS ORDERED: BUPIVACAINE 0.25% PF 30 ML VIAL EPI STA (19:39)
[2022-11-26] MEDS ORDERED: BUPIVACAINE 0.25% PF 30 ML VIAL EPI PRN (19:39)
[2022-11-26] MEDS ORDERED: ePHEDrine sulfate 50 MG/ML AMP IV PRN (19:39)
[2022-11-26] MEDS ORDERED: SODIUM CHLORIDE 0.9% PF INJ 10 ML VIAL EPI STA (19:39)
[2022-11-26] MEDS ORDERED: NALOXONE HCL 0.4 MG/1 ML VIAL/CARP IV PRN (19:39)
[2022-11-26] MEDS ORDERED: fentaNYL 2MCG/ML ROPIVACAINE 1.25MG/ML 100 ML BAG EPI PRN (19:39)
[2022-11-26] MEDS ORDERED: fentaNYL citrate PF 100 MCG/2 ML VIAL EPI PRN (19:39)
[2022-11-26] MEDS ORDERED: NALOXONE HCL 1 MG in SODIUM CHLORIDE 0.9% 1000ML 1,000 ML IV PRN (19:39)
--- NOTE | 2022-11-26 19:40 | Anesthesiology Consultation ---
Date of Service November 26, 2022 Assessment & Plan (1) Encounter for pre-operative examination: Chart Review Chart Review: Patient NOT seen in Pre Admission Testing and Acceptable Risk for Labor Epidural Consults Requested none History Height/Weight Height: 5 ft Weight: 78.744 kg Allergies Allergy/AdvReac Type Severity Reaction Status Date / Time No Known Drug Allergies Allergy Unknown Verified 11/26/22 16:44 Medications Home Medications Medication Instructions Recorded Confirmed Last Taken cholecalciferol (vitamin D3) 25 25 mcg PO DAILY 08/10/22 11/26/22 11/26/22 11:00 mcg (1,000 unit) capsule docosahexaenoic acid 200 mg 200 mg PO DAILY 08/10/22 11/26/22 11/26/22 11:00 capsule ( DHA) docusate sodium 100 mg capsule 100 mg PO DAILY 08/10/22 11/26/22 11/26/22 11:00 (Colace) famotidine 20 mg PO DAILY 08/10/22 11/26/22 11/26/22 11:00 magnesium oxide 400 mg PO DAILY 08/10/22 11/26/22 11/26/22 11:00 omega-3 fatty acids 1,250 mg 1,250 mg PO DAILY 08/10/22 11/26/22 11/26/22 11:00 capsule doxylamine 20 mg-pyridoxine 20 mg See Rx Instructions .Route 11/07/22 11/26/22 11/26/22 11:00 tablet,immediate and delayed .COMPLEX #60 tabs release ([place]) Active Medications Generic Name Dose Route Start Last Admin Trade Name Freq PRN Reason Stop Dose Admin Lactated Ringer's 1,000 mls @ 125 mls/hr 11/26/22 17:36 11/26/22 19:13 Lr IV 11/28/22 17:35 999 mls/hr .Q8H PRN Administration L&D Protocol Protocol Past Medical History Medical History Presence of IUD copper T, 12/23/19 removed 02/01/22 Spontaneous vaginal [place] [facility] [place] Past Family History Family History Mother Diabetes Hypertension Hypercholesteremia Sister PCOS (polycystic ovarian syndrome) Grandfather (Maternal) Myocardial infarction Denies family history of Ovarian cancer Prostate cancer Breast cancer Lung cancer Colorectal cancer Stroke Past Surgical History Surgical History S/P LASIK surgery S/P wisdom tooth extraction Social History Smoking Status: Never smoker Do You Dip or Chew Tobacco: No Hx Alcohol Use: No Hx Substance Use: No Physical Exam Vital Signs Last Vital Signs Temp 98.2 F 11/26/22 19:15 Pulse 86 11/26/22 19:12 Resp 18 11/26/22 19:15 BP 124/85 11/26/22 19:12 Testing Laboratory Results 11/26/22 18:00
--- NOTE | 2022-11-26 21:20 | Delivery Summary ---
Vaginal Delivery Summary Date of Service November 26, 2022 Vaginal Delivery Summary DIAGNOSES: 1. [place] intrauterine at 39w2d gestation. 2. Spontaneous onset of labor. 3. Group B Streptococcus Neg. PROCEDURE: Spontaneous vaginal delivery and repair of second degree laceration. SURGEON: Emilie Conrad MD. NEUROSURGERY RESEARCH DIRECTOR: None. ESTIMATED BLOOD LOSS: 300 mL. COMPLICATIONS: None. PLACENTA: Spontaneous and intact with a 3-vessel cord. DISPOSITION: Stable to labor and delivery. DESCRIPTION: The patient pushed well and brought the head to in DOA position. The infant's head was allowed to deliver with contraction force and no further active pushing, with the perineum protected during this time. There was a double loop of nuchal cord. The left shoulder was anterior. The shoulders and body delivered without any difficulty, and the infant was placed on the maternal abdomen. It was vigorous and moving all extremities, and making respiratory efforts. The cord was doubly clamped by the MD and then cut by the FOB. The placenta delivered spontaneously and was noted to be intact and with a 3VC. The cervix, vagina and perineum were examined and were found to have a shallow second degree laceration which was repaired with vicryl in the usual manner. The fundus was firm and lochia minimal immediately after delivery. [facility] Vaginal Delivery Charge Vaginal Delivery Codes: 49104 global code for the antepartum, delivery, and post-
[2022-11-26] MEDS ORDERED: oxyCODONE/ACETAMINOPHEN 5mg/325mg TAB PO PRN (23:06)
[2022-11-26] MEDS ORDERED: BENZOCAINE 20% AER SPR 82.5 GM CAN EXT PRN (23:06)
[2022-11-26] MEDS ORDERED: HYDROCORTISONE ACETATE 25 MG SUPP PR PRN (23:06)
[2022-11-26] MEDS ORDERED: DIPHTHERIA/TETANUS/PERTUSSIS Vaccine (Tdap, Age 7+yrs) 0.5mL SYR/VL IM ONE (23:06)
[2022-11-26] MEDS ORDERED: ACETAMINOPHEN 325 MG TAB PO PRN (23:06)
[2022-11-26] MEDS: IBUPROFEN 600 MG TAB PO PRN (23:16)
[2022-11-27 06:15] LABS: Hemoglobin 10.8 g/dl (12.0-16.0); Mean Corpuscular Hemoglobin 30.3 pg (25.0-34.0); Mean Corpuscular Hgb Conc 33.8 g/dL (32.0-36.0); Mean Corpuscular Volume 89.6 fL (80.0-100.0); Platelet Count 184 K/uL (130-400); RDW Coefficient of Variation 13.7 % (11.5-14.5); RDW Standard Deviation 44.8 fL (36.4-46.3); Red Blood Count 3.57 M/uL (4.20-5.40); White Blood Count 10.62 K/ul (4.8-10.8)
--- NOTE | 2022-11-27 07:37 | Anesthesia Procedure Note ---
Date of Service November 27, 2022 Anesthesia Post Epidural Note Vital Signs Vital Signs: Temp Pulse Resp BP Pulse Ox 36.7 C 95 H 18 109/65 100 11/27/22 03:35 11/27/22 03:33 11/27/22 03:35 11/27/22 03:33 11/26/22 21:08 Pain Intensity Bilateral Abdomen: Pain Intensity: 1 Notes Mental Status: alert / awake / arousable and participated in evaluation Nausea / Vomiting: adequately controlled Pain: adequately controlled Airway Patency, RR, SpO2: stable & adequate BP & HR: stable & adequate Hydration State: stable & adequate Neuraxial Anesthesia: was administered and sensory block resolved Anesthetic Complications: no major complications apparent and Pt Satisfied with anesthetic care Epidural: Removed without complications and With tip intact
[2022-11-27] MEDS: PRENATAL VITAMIN 1 TAB PO SCH (07:45)
[2022-11-27] MEDS: DOCUSATE SODIUM 100 MG CAP PO SCH ×2 (07:45→21:02)
[2022-11-27] MEDS: IBUPROFEN 600 MG TAB PO PRN (07:45)
--- NOTE | 2022-11-27 07:49 | Obstetrical Progress Note ---
Date of Service <Ewa Jimenez DO - Last Filed: 11/27/22 07:49> November 27, 2022 Assessment & Plan <Ewa Jimenez DO - Last Filed: 11/27/22 07:49> (1) care following vaginal delivery: Feels well today. Eating well, voiding well, ambulating well. Pain well controlled with prn motrin. Routine care; OOB, ambulation, continue regular diet. Plan for discharge tomorrow a.m. After discharge will have 6 week follow-up with Dr. Conrad. <Emilie Conrad MD - Last Filed: 11/28/22 11:23> (1) care following vaginal delivery: Subjective <Ewa Jimenez DO - Last Filed: 11/27/22 07:49> Pt is a 31 y/o female who is PPD#1 following at 39 2/7 weeks. Pt states she is doing well this morning, is just feeling tired since she did not sleep much last night as baby was fussy. She has been ambulating, voiding, and passing gas since her delivery. She has been tolerating regular diet without nausea or vomiting. Has some persistent lochia with some improvement this morning. Her pain has been about a 2/10 well controlled with motrin. She is . Constitutional: no fever, no chills or no sweats Respiratory: no dyspnea Cardiovascular: no chest pain or no palpitations Breast: no breast pain Genitourinary (female): no dysuria Neurologic: no headache(s) no changes in vision, no headaches Physical Exam <Ewa Jimenez DO - Last Filed: 11/27/22 07:49> General: Alert, oriented. No acute distress. Cardiac: Regular rate and rhythm, no murmurs, rubs, or gallops. Respiratory: Clear to auscultation bilaterally, no wheezes/rales/rhonchi. No increased work of breathing. Symmetrical chest rise. No respiratory distress. Abdomen: Soft, nontender, nondistended. Bowel sounds present. Uterus: Uterine fundus firm, palpable below the umbilicus. Lower extremities: No lower extremity edema or swelling. No deep calf pain. Results & Data <Ewa Jimenez DO - Last Filed: 11/27/22 07:49> Vital Signs (Past 12 Hours) Vital Signs Temp Pulse Resp BP Pulse Ox 11/27/22 03:35 36.7 C 18 11/26/22 23:10 20 11/27/22 00:46 36.9 C 18 11/26/22 23:15 36.9 C 11/26/22 21:00 20 11/26/22 22:40 89 20 125/59 L 11/26/22 21:40 85 20 99/72 L 11/26/22 22:10 89 18 125/59 L 11/26/22 21:55 85 18 99/72 L 11/26/22 21:25 85 20 99/72 L 11/26/22 21:10 84 18 112/56 L 11/27/22 03:33 95 H 109/65 11/27/22 00:42 80 116/62 11/26/22 23:12 94 H 11/26/22 23:12 109/56 L 11/26/22 22:57 94 H 11/26/22 22:57 122/57 L 11/26/22 22:43 89 11/26/22 22:43 125/59 L 11/26/22 22:13 85 11/26/22 22:13 121/70 11/26/22 21:58 85 11/26/22 21:58 99/72 L 11/26/22 21:42 84 11/26/22 21:42 96/61 L 11/26/22 21:28 88 11/26/22 21:28 94/60 L 11/26/22 21:13 84 11/26/22 21:13 112/56 L 11/26/22 21:08 100 11/26/22 21:08 82 11/26/22 21:03 100 11/26/22 21:03 134 H 11/26/22 20:58 99 11/26/22 20:58 133 H 11/26/22 20:53 100 11/26/22 20:53 94 H 11/26/22 20:48 100 11/26/22 20:48 77 11/26/22 20:36 36.5 C 11/26/22 20:46 77 11/26/22 20:46 107/58 L 11/26/22 20:20 20 11/26/22 20:20 20 11/26/22 20:25 18 11/26/22 20:25 18 11/26/22 20:30 18 11/26/22 20:30 18 11/26/22 20:43 100 11/26/22 20:43 78 11/26/22 20:38 100 11/26/22 20:38 86 11/26/22 20:33 100 11/26/22 20:33 86 11/26/22 20:30 82 11/26/22 20:30 113/61 11/26/22 20:28 100 11/26/22 20:28 97 H 11/26/22 20:28 80 11/26/22 20:28 109/60 11/26/22 20:24 96 H 11/26/22 20:24 109/55 L 11/26/22 20:23 100 11/26/22 20:23 99 H 11/26/22 20:21 81 11/26/22 20:21 113/60 11/26/22 20:18 100 11/26/22 20:18 82 11/26/22 20:18 108/59 L 11/26/22 20:05 18 11/26/22 20:05 18 11/26/22 20:10 18 11/26/22 20:10 18 11/26/22 20:15 18 11/26/22 20:15 18 11/26/22 20:00 20 11/26/22 20:00 20 11/26/22 20:15 85 11/26/22 20:15 109/58 L 11/26/22 20:13 100 11/26/22 20:13 86 11/26/22 20:12 102 H 11/26/22 20:12 101/57 L 11/26/22 20:09 86 11/26/22 20:09 101/59 L 11/26/22 20:08 100 11/26/22 20:08 91 H 11/26/22 20:07 96 H 11/26/22 20:07 101/61 11/26/22 20:03 100 11/26/22 20:03 106 H 11/26/22 20:03 106/61 11/26/22 20:00 94 H 11/26/22 20:00 107/56 L 11/26/22 19:58 100 11/26/22 19:58 104 H 11/26/22 19:58 90 11/26/22 19:58 109/61 11/26/22 19:55 87 11/26/22 19:55 141/69 H 11/26/22 19:53 100 11/26/22 19:53 90 11/26/22 19:48 100 11/26/22 19:48 94 H 11/26/22 19:49 96 H 11/26/22 19:49 150/91 H <Emilie Conrad MD - Last Filed: 11/28/22 11:23> Co-Signing Physician Notes Resident Physician Supervision Note: I interviewed and examined the patient. Discussed with Dr. Jimenez and agree with findings and plan as documented in the note. Any exceptions or clarifications are listed here: [ ] Documented By: Emilie Conrad MD, FACOG Resident Activity Tracking <Ewa Jimenez DO - Last Filed: 11/27/22 07:49> Resident Involvement: Resident Care Provided Care Provided: OB Delivery
[2022-11-27] MEDS ORDERED: bisacodyL 5 MG TABEC PO SCH (20:00)
[2022-11-28] MEDS ORDERED: bisacodyL 10 MG SUPP PR PRN
--- NOTE | 2022-11-28 06:10 | Obstetrical Progress Note ---
Date of Service <Ewa Jimenez DO - Last Filed: 11/28/22 06:14> November 28, 2022 Assessment & Plan <Ewa Jimenez DO - Last Filed: 11/28/22 06:14> (1) care following vaginal delivery: Feels well today. Eating well, voiding well, ambulating well. Pain well controlled with prn motrin. Routine care; OOB, ambulation, continue regular diet. Plan for discharge today. After discharge will have 6 week follow-up with Dr. Conrad. <Khushi Elder MD, FACOG - Last Filed: 11/28/22 08:14> (1) care following vaginal delivery: Subjective <Ewa Jimenez DO - Last Filed: 11/28/22 06:14> Pt is a 31 y/o female who is PPD#2 following at 39 2/7 weeks. Pt was seen in the nursery this morning. Pt states that she is feeling good today. She has been ambulating, voiding, passing gas, and had a bowel movement since her delivery. She is tolerating meals without nausea or vomiting. She states she is barely having any bleeding. She states her pain has been a 1-2/10 and well controlled with just prn motrin. She has no questions or complaints at this time. She is breast feeding. Constitutional: no fever, no chills or no sweats Respiratory: no dyspnea Cardiovascular: no chest pain or no palpitations Breast: no breast pain Genitourinary (female): no dysuria Neurologic: no headache(s) no changes in vision, no headaches Physical Exam <Ewa Jimenez DO - Last Filed: 11/28/22 06:14> General: Alert, oriented. No acute distress. Cardiac: Regular rate and rhythm, no murmurs, rubs, or gallops. Respiratory: Clear to auscultation bilaterally, no wheezes/rales/rhonchi. No increased work of breathing. Symmetrical chest rise. No respiratory distress. Abdomen: Soft, nontender, nondistended. Bowel sounds present. Uterus: Uterine fundus firm, palpable below the umbilicus and nontender. Lower extremities: No lower extremity edema or swelling. No deep calf pain. Results & Data <Ewa Jimenez DO - Last Filed: 11/28/22 06:14> Vital Signs (Past 12 Hours) Vital Signs Temp Pulse Resp BP 11/27/22 23:00 36.6 C 78 18 112/18 L 11/27/22 21:02 36.6 C 106 H 18 119/73 <Khushi Elder MD, FACOG - Last Filed: 11/28/22 08:14> Co-Signing Physician Notes Resident Physician Supervision Note: I was present with Dr. Jimenez during the history and exam. I discussed the case with the resident and agree with the findings and plan as documented in the note. Any exceptions or clarifications are listed here: stable, doing well. baby still needing some respiratory support. . she is eating, voiding, ambulating without problem. bleeding decreased.will be dc'd to nesting, instructions reviewed. f/u 6wk pp check. Documented By: Khushi Elder MD, FACOG Resident Activity Tracking <Ewa Jimenez DO - Last Filed: 11/28/22 06:14> Resident Involvement: Resident Care Provided Care Provided: OB Delivery
[2022-11-28] MEDS: DOCUSATE SODIUM 100 MG CAP PO SCH (07:47)
[2022-11-28] MEDS: PRENATAL VITAMIN 1 TAB PO SCH (07:47)
[2022-11-28 09:01] LABS: Hematocrit (blood only) 35.6 % (37.0-47.0); Hemoglobin 11.9 g/dl (12.0-16.0)
== END 2022-11-28 19:14 | disposition home or self-care (01) | DRG 807 ==
LOC: OPB 16:02 → 4S1 16:03 → 4E1 11-27 06:06